=== PATIENT | male | born 1930 | race Caucasian/White ===

== ENCOUNTER 2017-11-24 13:11 | Day surgery (SDC) | payer MEDICARE, OTHER ==
[2017-11-24] MEDS ORDERED: FURO20 PO (14:46)
[2017-11-24] MEDS ORDERED: LOSARTAN POTAS100 MG PO (14:47)
[2017-11-24] MEDS ORDERED: POTA10T PO (14:47)
[2017-11-24] MEDS ORDERED: Prilosec Otc20 MG PO (14:48)
[2017-11-24] MEDS ORDERED: ATEN25 PO (14:48)
[2017-11-24] MEDS ORDERED: BEVESPI AEROS10.7 GM INH (14:54)
== END 2017-11-24 18:52 | disposition home or self-care (01) ==
LOC: ATC 13:11
DX: D50.8 Other iron deficiency anemias (principal); J45.909 Unspecified asthma, uncomplicated; I10 Essential (primary) hypertension
CPT/HCPCS: 36415; 36430; 86850; 86900; 86901; 86923; 96374; J1940; J7030; P9016

== ENCOUNTER 2018-02-07 10:15 | Inpatient (IN) | payer MEDICARE, OTHER ==
[~2018-02-07] VITALS: Ht 175.3 cm; Wt 49.1 kg
[~2018-02-07 10:15] MED LIST: ATEN25 PO; BEVESPI AEROS10.7 GM INH; FURO20 PO; LOSARTAN POTAS100 MG PO; POTA10T PO; Prilosec Otc20 MG PO
[2018-02-07 10:45] LABS: BASOPHILS ABSOLUTE AUTO 0.02 K/mm3 (0.00-0.23); BASOPHILS PERCENT AUTO 0 % (0-2); EOSINOPHILS PERCENT AUTO 0 % (0-6); Hematocrit 19.2 % (37.0-53.0); IMMATURE GRAN ABSOLUTE AUTO 0.03 K/mm3 (0.00-0.10); IMMATURE GRAN PERCENT AUTO 0 % (0-1); LYMPHOCYTES ABSOLUTE AUTO 2.07 K/mm3 (0.84-5.20); LYMPHOCYTES PERCENT AUTO 23 % (21-46); MONOCYTES ABSOLUTE AUTO 0.79 K/mm3 (0.16-1.47); MONOCYTES PERCENT AUTO 9 % (4-13); Mean Corpuscular HGB 29.1 pg (26.0-34.0); Mean Corpuscular HGB Conc 31.3 g/dL (31.5-36.5); Mean Corpuscular Volume 93 fL (80-100); Mean Platelet Volume 10.7 fL (9.1-12.4); NEUTROPHILS ABSOLUTE AUTO 6.18 K/mm3 (1.96-9.15); NEUTROPHILS PERCENT AUTO 68 % (41-73); Platelet Count 229 K/mm3 (150-400); RDW Coefficient Variation 17.6 % (11.7-14.2); RDW Standard Deviation 60.6 fL (35.1-46.3); Red Blood Cell Count 2.06 M/mm3 (4.30-5.90); White Blood Cell Count 9.09 K/mm3 (4.00-11.30)
[2018-02-07 11:07] LABS: Alanine Aminotransfer (ALT/SGP 14 U/L (12-78); Albumin, Blood 3.5 g/dL (3.4-5.0); Albumin/Globulin Ratio 1.1 (0.8-1.8); Alk Phos 41 U/L (50-136); Anion Gap 14 mmol/L (6-16); Aspartate Aminotrans (AST/SGOT 11 U/L (12-37); Bilirubin, Total 0.4 mg/dL (0.1-1.0); Blood Urea Nitrogen 50 mg/dL (8-24); Bun/Creatinine Ratio 33.1 (12.0-20.0); CO2, Blood 16 mmol/L (21-32); Calcium, Blood 9.2 mg/dL (8.5-10.1); Chloride, Blood 105 mmol/L (98-108); Creatinine, Blood 1.51 mg/dL (0.60-1.20); Globulin, Blood 3.2 g/dL (2.2-4.0); Glomerular Filtration Rate 47 (60-); Glucose, Blood 163 mg/dL (70-99); Potassium, Blood 4.8 mmol/L (3.5-5.5); Sodium, Blood 135 mmol/L (136-145); Total Protein, Blood 6.7 g/dL (6.4-8.2); Troponin I <0.015 ng/mL (0.000-0.040)
[2018-02-07] MEDS ORDERED: K-Dur10 MEQ (11:26)
[2018-02-07] MEDS ORDERED: LOSARTAN-HCTZ1 EAC2 PO (11:27)
[2018-02-07] MEDS ORDERED: FLUT1DIS2 (11:27)
[2018-02-07 13:42] LABS: Percent Saturation 4.8 % (20.0-50.0)
[2018-02-07 21:39] LABS: Hematocrit 26.2 % (37.0-53.0); Hemoglobin 8.8 g/dL (13.5-17.5)
[2018-02-08 04:07] LABS: BASOPHILS ABSOLUTE AUTO 0.02 K/mm3 (0.00-0.23); BASOPHILS PERCENT AUTO 0 % (0-2); EOSINOPHILS PERCENT AUTO 0 % (0-6); Hematocrit 27.4 % (37.0-53.0); IMMATURE GRAN ABSOLUTE AUTO 0.02 K/mm3 (0.00-0.10); IMMATURE GRAN PERCENT AUTO 0 % (0-1); LYMPHOCYTES ABSOLUTE AUTO 1.13 K/mm3 (0.84-5.20); LYMPHOCYTES PERCENT AUTO 16 % (21-46); MONOCYTES ABSOLUTE AUTO 0.69 K/mm3 (0.16-1.47); MONOCYTES PERCENT AUTO 10 % (4-13); Mean Corpuscular HGB 28.9 pg (26.0-34.0); Mean Corpuscular HGB Conc 32.8 g/dL (31.5-36.5); Mean Platelet Volume 10.5 fL (9.1-12.4); NEUTROPHILS ABSOLUTE AUTO 5.03 K/mm3 (1.96-9.15); NEUTROPHILS PERCENT AUTO 73 % (41-73); Platelet Count 168 K/mm3 (150-400); RDW Coefficient Variation 15.9 % (11.7-14.2); RDW Standard Deviation 51.9 fL (35.1-46.3); Red Blood Cell Count 3.11 M/mm3 (4.30-5.90); White Blood Cell Count 6.89 K/mm3 (4.00-11.30)
[2018-02-08 04:08] LABS: Mean Corpuscular Volume 88 fL (80-100)
[2018-02-08 04:29] LABS: Alanine Aminotransfer (ALT/SGP 19 U/L (12-78); Albumin, Blood 3.4 g/dL (3.4-5.0); Albumin/Globulin Ratio 1.1 (0.8-1.8); Alk Phos 34 U/L (50-136); Anion Gap 10 mmol/L (6-16); Aspartate Aminotrans (AST/SGOT 35 U/L (12-37); Bilirubin, Total 1.1 mg/dL (0.1-1.0); Blood Urea Nitrogen 51 mg/dL (8-24); Bun/Creatinine Ratio 42.5 (12.0-20.0); CO2, Blood 23 mmol/L (21-32); Calcium, Blood 8.8 mg/dL (8.5-10.1); Chloride, Blood 106 mmol/L (98-108); Glomerular Filtration Rate >60 (60-); Glucose, Blood 92 mg/dL (70-99); Sodium, Blood 139 mmol/L (136-145); Total Protein, Blood 6.4 g/dL (6.4-8.2)
[2018-02-09 04:12] LABS: BASOPHILS ABSOLUTE AUTO 0.03 K/mm3 (0.00-0.23); BASOPHILS PERCENT AUTO 0 % (0-2); EOSINOPHILS PERCENT AUTO 0 % (0-6); Hematocrit 30.7 % (37.0-53.0); Hemoglobin 10.1 g/dL (13.5-17.5); IMMATURE GRAN ABSOLUTE AUTO 0.03 K/mm3 (0.00-0.10); IMMATURE GRAN PERCENT AUTO 0 % (0-1); LYMPHOCYTES ABSOLUTE AUTO 0.78 K/mm3 (0.84-5.20); LYMPHOCYTES PERCENT AUTO 10 % (21-46); MONOCYTES ABSOLUTE AUTO 0.83 K/mm3 (0.16-1.47); MONOCYTES PERCENT AUTO 11 % (4-13); Mean Corpuscular HGB 29.4 pg (26.0-34.0); Mean Corpuscular HGB Conc 32.9 g/dL (31.5-36.5); Mean Corpuscular Volume 90 fL (80-100); Mean Platelet Volume 10.6 fL (9.1-12.4); NEUTROPHILS ABSOLUTE AUTO 5.98 K/mm3 (1.96-9.15); NEUTROPHILS PERCENT AUTO 78 % (41-73); Platelet Count 173 K/mm3 (150-400); RDW Coefficient Variation 16.1 % (11.7-14.2); RDW Standard Deviation 52.9 fL (35.1-46.3); Red Blood Cell Count 3.43 M/mm3 (4.30-5.90); White Blood Cell Count 7.65 K/mm3 (4.00-11.30)
[2018-02-09 04:32] LABS: Alanine Aminotransfer (ALT/SGP 21 U/L (12-78); Albumin, Blood 3.2 g/dL (3.4-5.0); Alk Phos 36 U/L (50-136); Anion Gap 9 mmol/L (6-16); Aspartate Aminotrans (AST/SGOT 30 U/L (12-37); Bilirubin, Total 0.6 mg/dL (0.1-1.0); Blood Urea Nitrogen 38 mg/dL (8-24); Bun/Creatinine Ratio 42.1 (12.0-20.0); CO2, Blood 24 mmol/L (21-32); Calcium, Blood 8.6 mg/dL (8.5-10.1); Chloride, Blood 107 mmol/L (98-108); Globulin, Blood 3.2 g/dL (2.2-4.0); Glomerular Filtration Rate >60 (60-); Glucose, Blood 87 mg/dL (70-99); Potassium, Blood 3.9 mmol/L (3.5-5.5); Sodium, Blood 140 mmol/L (136-145); Total Protein, Blood 6.4 g/dL (6.4-8.2)
[2018-02-09] MEDS ORDERED: DOCU100 PO (10:21)
[2018-02-09] MEDS ORDERED: Ferrous Sulfat325 MG PO (10:21)
[2018-02-09] MEDS ORDERED: LOSA50 PO (10:22)
== END 2018-02-09 13:02 | disposition home or self-care (01) | DRG 345 ==
LOC: ER 10:15 → PCU 12:39
PROVIDERS: Emergency Medicine; Internal Medicine; Internal Medicine Gastroenterology
PROC: 30233N1 Transfusion of Nonautologous Red Blood Cells into Peripheral Vein, Percutaneous Approach (ICD-10-PCS; 2018-02-07)
PROC: 0D5A8ZZ Destruction of Jejunum, Via Natural or Artificial Opening Endoscopic (ICD-10-PCS; principal; 2018-02-08 12:00)
DX: K92.1 Melena (principal); I13.0 Hypertensive heart and chronic kidney disease with heart failure and stage 1 through stage 4 chronic kidney disease, or unspecified chronic kidney disease; I50.22 Chronic systolic (congestive) heart failure; D62 Acute posthemorrhagic anemia; Z68.1 Body mass index [BMI] 19.9 or less, adult; D63.1 Anemia in chronic kidney disease; N18.9 Chronic kidney disease, unspecified; R62.7 Adult failure to thrive; R63.4 Abnormal weight loss; Q27.33 Arteriovenous malformation of digestive system vessel; K22.2 Esophageal obstruction; K29.40 Chronic atrophic gastritis without bleeding; Z79.899 Other long term (current) drug therapy; Z87.891 Personal history of nicotine dependence; Z96.641 Presence of right artificial hip joint; Z90.79 Acquired absence of other genital organ(s)
CPT/HCPCS: 36415; 36430; 71046; 80053; 82272; 82728; 83540; 83550; 83735; 83880; 84484; 85014; 85018; 85025; 86850; 86900; 86901; 86923; 93005; 93010; 93306; 96374; 99285; C9113; J1940; J7030; J7120; P9016

== ENCOUNTER 2018-05-20 12:27 | Observation (INO) | payer MEDICARE, OTHER ==
[~2018-05-20] VITALS: Ht 165.1 cm; Wt 52.1 kg
[~2018-05-20 12:27] MED LIST changes: +DOCU100 PO; +FLUT1DIS2; +Ferrous Sulfat325 MG PO; +K-Dur10 MEQ; +LOSA50 PO; +LOSARTAN-HCTZ1 EAC2 PO
[2018-05-20] MEDS ORDERED: CARV3.125 PO (12:34)
[2018-05-20] MEDS ORDERED: LOSARTAN POTAS100 MG PO (12:34)
[2018-05-20] MEDS ORDERED: K-Dur10 MEQ PO (12:34)
[2018-05-20 12:55] LABS: BASOPHILS ABSOLUTE AUTO 0.03 K/mm3 (0.00-0.23); BASOPHILS PERCENT AUTO 0 % (0-2); EOSINOPHILS PERCENT AUTO 0 % (0-6); Hematocrit 26.2 % (37.0-53.0); Hemoglobin 8.2 g/dL (13.5-17.5); IMMATURE GRAN ABSOLUTE AUTO 0.02 K/mm3 (0.00-0.10); IMMATURE GRAN PERCENT AUTO 0 % (0-1); LYMPHOCYTES ABSOLUTE AUTO 1.26 K/mm3 (0.84-5.20); LYMPHOCYTES PERCENT AUTO 13 % (21-46); MONOCYTES ABSOLUTE AUTO 0.94 K/mm3 (0.16-1.47); MONOCYTES PERCENT AUTO 10 % (4-13); Mean Corpuscular HGB 29.9 pg (26.0-34.0); Mean Corpuscular HGB Conc 31.3 g/dL (31.5-36.5); Mean Corpuscular Volume 96 fL (80-100); Mean Platelet Volume 10.3 fL (9.1-12.4); NEUTROPHILS PERCENT AUTO 77 % (41-73); Platelet Count 232 K/mm3 (150-400); RDW Coefficient Variation 16.6 % (11.7-14.2); RDW Standard Deviation 57.4 fL (35.1-46.3); Red Blood Cell Count 2.74 M/mm3 (4.30-5.90); White Blood Cell Count 9.75 K/mm3 (4.00-11.30)
[2018-05-20 13:07] LABS: Alanine Aminotransfer (ALT/SGP 15 U/L (12-78); Albumin, Blood 3.5 g/dL (3.4-5.0); Albumin/Globulin Ratio 0.9 (0.8-1.8); Alk Phos 53 U/L (50-136); Anion Gap 10 mmol/L (6-16); Aspartate Aminotrans (AST/SGOT 17 U/L (12-37); Bilirubin, Total 0.2 mg/dL (0.1-1.0); Blood Urea Nitrogen 45 mg/dL (8-24); Bun/Creatinine Ratio 30.4 (12.0-20.0); CO2, Blood 22 mmol/L (21-32); Calcium, Blood 8.7 mg/dL (8.5-10.1); Chloride, Blood 103 mmol/L (98-108); Creatinine, Blood 1.48 mg/dL (0.60-1.20); Glomerular Filtration Rate 48 (60-); Glucose, Blood 88 mg/dL (70-99); Potassium, Blood 4.8 mmol/L (3.5-5.5); Sodium, Blood 135 mmol/L (136-145); Total Protein, Blood 7.5 g/dL (6.4-8.2); Troponin I <0.015 ng/mL (0.000-0.040)
[2018-05-20 15:28] LABS: IMMATURE RETIC FRACTION 20.1 % (2.3-16.0); RETIC HGB EQUIVALENT 36.4 pg (28.20-36.60); RETICULOCYTE ABSOLUTE 0.0616 M/mm3 (0.0200-0.1100); RETICULOCYTE COUNT PERCENT 2.29 % (0.50-2.50)
[2018-05-20 20:25] LABS: Hematocrit 28.8 % (37.0-53.0); Hemoglobin 9.1 g/dL (13.5-17.5)
[2018-05-21 05:25] LABS: BASOPHILS ABSOLUTE AUTO 0.02 K/mm3 (0.00-0.23); BASOPHILS PERCENT AUTO 0 % (0-2); EOSINOPHILS PERCENT AUTO 0 % (0-6); Hematocrit 27.4 % (37.0-53.0); Hemoglobin 8.9 g/dL (13.5-17.5); IMMATURE GRAN ABSOLUTE AUTO 0.02 K/mm3 (0.00-0.10); IMMATURE GRAN PERCENT AUTO 0 % (0-1); LYMPHOCYTES ABSOLUTE AUTO 1.01 K/mm3 (0.84-5.20); LYMPHOCYTES PERCENT AUTO 12 % (21-46); MONOCYTES ABSOLUTE AUTO 0.99 K/mm3 (0.16-1.47); MONOCYTES PERCENT AUTO 12 % (4-13); Mean Corpuscular HGB 29.4 pg (26.0-34.0); Mean Corpuscular HGB Conc 32.5 g/dL (31.5-36.5); Mean Platelet Volume 10.3 fL (9.1-12.4); NEUTROPHILS ABSOLUTE AUTO 6.35 K/mm3 (1.96-9.15); NEUTROPHILS PERCENT AUTO 76 % (41-73); Platelet Count 197 K/mm3 (150-400); RDW Coefficient Variation 18.5 % (11.7-14.2); RDW Standard Deviation 60.9 fL (35.1-46.3); Red Blood Cell Count 3.03 M/mm3 (4.30-5.90); White Blood Cell Count 8.39 K/mm3 (4.00-11.30)
[2018-05-21 05:41] LABS: Anion Gap 9 mmol/L (6-16); Blood Urea Nitrogen 37 mg/dL (8-24); Bun/Creatinine Ratio 31.9 (12.0-20.0); CO2, Blood 23 mmol/L (21-32); Calcium, Blood 8.4 mg/dL (8.5-10.1); Chloride, Blood 106 mmol/L (98-108); Creatinine, Blood 1.16 mg/dL (0.60-1.20); Glomerular Filtration Rate >60 (60-); Glucose, Blood 82 mg/dL (70-99); Potassium, Blood 4.3 mmol/L (3.5-5.5); Sodium, Blood 138 mmol/L (136-145)
[2018-05-21 05:48] LABS: Mean Corpuscular Volume 90 fL (80-100)
[2018-05-21 12:42] LABS: Hematocrit 29.4 % (37.0-53.0); Hemoglobin 9.6 g/dL (13.5-17.5)
== END 2018-05-21 14:42 | disposition home or self-care (01) ==
LOC: ER 12:27 → MEDS 12:28 → ER 14:37 → MEDS 14:37 → ENPENDDIS 05-21 13:02 → MEDS 05-21 14:42
PROVIDERS: Emergency Medicine; Hospitalist; Internal Medicine Gastroenterology
PROC: 0W3P8ZZ Control Bleeding in Gastrointestinal Tract, Via Natural or Artificial Opening Endoscopic (ICD-10-PCS; principal; 2018-05-20 17:00)
DX: K31.819 Angiodysplasia of stomach and duodenum without bleeding (principal); D50.0 Iron deficiency anemia secondary to blood loss (chronic); I95.9 Hypotension, unspecified; I11.0 Hypertensive heart disease with heart failure; I50.20 Unspecified systolic (congestive) heart failure; J44.9 Chronic obstructive pulmonary disease, unspecified; Z79.899 Other long term (current) drug therapy; Z87.891 Personal history of nicotine dependence
CPT/HCPCS: 36415; 71046; 80048; 80053; 82272; 82607; 82728; 82746; 83540; 83550; 84484; 85014; 85018; 85025; 85045; 86850; 86900; 86901; 86923; 93005; 93010; 96360; 99285-25; G0378; J7040; J7120; P9016

== ENCOUNTER 2018-09-07 07:08 | Day surgery (SDC) | payer MEDICARE, OTHER ==
[~2018-09-07 07:08] MED LIST changes: +CARV3.125 PO; +K-Dur10 MEQ PO
--- NOTE | 2018-09-07 11:08 | NUR ---
LUNGS AFTER 1 UNIT PRBC, CLEAR, DECREASED L BASE
== END 2018-09-07 13:29 | disposition home or self-care (01) ==
LOC: ATC 07:08
DX: K92.2 Gastrointestinal hemorrhage, unspecified (principal); D64.9 Anemia, unspecified; B02.0 Zoster encephalitis; I50.20 Unspecified systolic (congestive) heart failure
CPT/HCPCS: 36430; 86850; 86900; 86901; 86923; J7050; P9016

== ENCOUNTER 2019-06-11 10:56 | Emergency (ER) | payer MEDICARE, OTHER ==
[~2019-06-11] VITALS: Ht 177.8 cm; Wt 65.8 kg
[2019-06-11] MEDS ORDERED: LOSARTAN POTASS25 M2 PO (11:21)
[2019-06-11] MEDS ORDERED: OLAN2.5 PO (11:21)
[2019-06-11] MEDS ORDERED: MIRT30 PO (11:21)
[2019-06-11] MEDS ORDERED: DONEPEZIL HCL5 M1 PO (11:22)
[2019-06-11 11:56] LABS: BASOPHILS ABSOLUTE AUTO 0.06 K/mm3 (0.00-0.23); BASOPHILS PERCENT AUTO 0 % (0-2); EOSINOPHILS PERCENT AUTO 0 % (0-6); Hematocrit 34.7 % (37.0-53.0); IMMATURE GRAN ABSOLUTE AUTO 0.04 K/mm3 (0.00-0.10); IMMATURE GRAN PERCENT AUTO 0 % (0-1); LYMPHOCYTES ABSOLUTE AUTO 1.06 K/mm3 (0.84-5.20); LYMPHOCYTES PERCENT AUTO 7 % (21-46); MONOCYTES ABSOLUTE AUTO 0.82 K/mm3 (0.16-1.47); MONOCYTES PERCENT AUTO 6 % (4-13); Mean Corpuscular HGB 33.1 pg (26.0-34.0); Mean Corpuscular HGB Conc 31.7 g/dL (31.5-36.5); Mean Corpuscular Volume 105 fL (80-100); Mean Platelet Volume 11.9 fL (9.1-12.4); NEUTROPHILS ABSOLUTE AUTO 12.79 K/mm3 (1.96-9.15); NEUTROPHILS PERCENT AUTO 87 % (41-73); Platelet Count 169 K/mm3 (150-400); RDW Coefficient Variation 16.3 % (11.7-14.2); Red Blood Cell Count 3.32 M/mm3 (4.30-5.90); White Blood Cell Count 14.77 K/mm3 (4.00-11.30)
[2019-06-11 12:06] LABS: Alanine Aminotransfer (ALT/SGP 15 U/L (12-78); Albumin, Blood 3.5 g/dL (3.4-5.0); Albumin/Globulin Ratio 0.9 (0.8-1.8); Alk Phos 42 U/L (50-136); Anion Gap 7 mmol/L (6-16); Aspartate Aminotrans (AST/SGOT 24 U/L (12-37); Bilirubin, Total 0.4 mg/dL (0.1-1.0); Blood Urea Nitrogen 48 mg/dL (8-24); CO2, Blood 21 mmol/L (21-32); Calcium, Blood 9.3 mg/dL (8.5-10.1); Chloride, Blood 112 mmol/L (98-108); Creatinine, Blood 1.41 mg/dL (0.60-1.20); Glomerular Filtration Rate 50 (60-); Glucose, Blood 101 mg/dL (70-99); Potassium, Blood 4.3 mmol/L (3.5-5.5); Sodium, Blood 140 mmol/L (136-145); Total Protein, Blood 7.5 g/dL (6.4-8.2); Troponin I <0.015 ng/mL (0.000-0.040)
== END 2019-06-11 13:32 | disposition home or self-care (01) ==
LOC: ER 10:56
PROVIDERS: Emergency Medicine
DX: R10.30 Lower abdominal pain, unspecified (principal); R00.1 Bradycardia, unspecified; Z87.891 Personal history of nicotine dependence; Z79.899 Other long term (current) drug therapy
CPT/HCPCS: 80053; 82272; 83690; 84484; 85025; 93005; 93010; 99284-25

== ENCOUNTER 2019-07-28 11:43 | Inpatient (IN) | payer MEDICARE, OTHER ==
[~2019-07-28] VITALS: Ht 170.2 cm; Wt 47.0 kg
[~2019-07-28 11:43] MED LIST changes: +DONEPEZIL HCL5 M1 PO; +LOSARTAN POTASS25 M2 PO; +OLAN2.5 PO; -Prilosec Otc20 MG PO
[2019-07-28 12:13] LABS: BASOPHILS ABSOLUTE AUTO 0.05 K/mm3 (0.00-0.23); BASOPHILS PERCENT AUTO 0 % (0-2); EOSINOPHILS PERCENT AUTO 0 % (0-6); Hematocrit 33.8 % (37.0-53.0); IMMATURE GRAN ABSOLUTE AUTO 0.13 K/mm3 (0.00-0.10); IMMATURE GRAN PERCENT AUTO 1 % (0-1); LYMPHOCYTES PERCENT AUTO 8 % (21-46); MONOCYTES ABSOLUTE AUTO 1.55 K/mm3 (0.16-1.47); MONOCYTES PERCENT AUTO 7 % (4-13); Mean Corpuscular HGB 32.5 pg (26.0-34.0); Mean Corpuscular HGB Conc 32.5 g/dL (31.5-36.5); Mean Corpuscular Volume 100 fL (80-100); Mean Platelet Volume 11.4 fL (9.1-12.4); NEUTROPHILS ABSOLUTE AUTO 17.87 K/mm3 (1.96-9.15); NEUTROPHILS PERCENT AUTO 84 % (41-73); Platelet Count 225 K/mm3 (150-400); RDW Coefficient Variation 14.6 % (11.7-14.2); RDW Standard Deviation 53.2 fL (35.1-46.3); Red Blood Cell Count 3.38 M/mm3 (4.30-5.90)
[2019-07-28 12:32] LABS: Albumin, Blood 3.3 g/dL (3.4-5.0); Albumin/Globulin Ratio 0.7 (0.8-1.8); Bilirubin, Total 0.5 mg/dL (0.1-1.0); Bun/Creatinine Ratio 33.6 (12.0-20.0); Calcium, Blood 9.3 mg/dL (8.5-10.1); Creatinine, Blood 1.4 mg/dL (0.60-1.20); Globulin, Blood 4.5 g/dL (2.2-4.0); Potassium, Blood 3.9 mmol/L (3.5-5.5); Total Protein, Blood 7.8 g/dL (6.4-8.2)
[2019-07-28 14:00] LABS: Source, Urine Clean Catch
[2019-07-28 14:12] LABS: Bilirubin, Urine Neg (Neg); Blood, Urine Neg (Neg); Glucose Qualitative, Urine Neg (Neg); Ketones, Urine 1+ (Neg); Leukocyte Esterase, Urine 1+ (Neg); Nitrite, Urine Neg (Neg); Protein, Urine Neg (Neg); Urobilinogen, Urine NORM (Normal)
[2019-07-28 14:52] LABS: Appearance, Urine Clear (Clear); Color, Urine Yellow (P-Yellow)
[2019-07-28 14:54] LABS: Bacteria Few /hpf; Mucus Light (0-Heavy); Red Blood Cells, Urine Not Seen /hpf (0-2); Squamous Epithelial Cells Not Seen /hpf (Few); White Blood Cells, Urine 0-2 /hpf (0-5)
[2019-07-29 00:10] LABS: Adenovirus Not Detected (NOT DETECT); Bordetella pertussis Not Detected (NOT DETECT); Chlamydophila pneumoniae Not Detected (NOT DETECT); Coronavirus 229E Not Detected (NOT DETECT); Coronavirus HKU1 Not Detected (NOT DETECT); Coronavirus NL63 Not Detected (NOT DETECT); Coronavirus OC43 Not Detected (NOT DETECT); Human Metapneumovirus Not Detected (NOT DETECT); Human Rhinovirus/Enterovirus Not Detected (NOT DETECT); Influenza A Not Detected (NOT DETECT); Influenza A/2009-H1 Not Detected (NOT DETECT); Influenza A/H1 Not Detected (NOT DETECT); Influenza A/H3 Not Detected (NOT DETECT); Influenza B Not Detected (NOT DETECT); Mycoplasma pneumoniae Not Detected (NOT DETECT); Parainfluenza Virus 1 Not Detected (NOT DETECT); Parainfluenza Virus 2 Not Detected (NOT DETECT); Parainfluenza Virus 3 Not Detected (NOT DETECT); Parainfluenza Virus 4 Not Detected (NOT DETECT); Respiratory Syncytial Virus Not Detected (NOT DETECT)
[2019-07-29 04:56] LABS: BASOPHILS ABSOLUTE AUTO 0.06 K/mm3 (0.00-0.23); BASOPHILS PERCENT AUTO 0 % (0-2); EOSINOPHILS PERCENT AUTO 0 % (0-6); Hematocrit 35.8 % (37.0-53.0); Hemoglobin 11.7 g/dL (13.5-17.5); IMMATURE GRAN ABSOLUTE AUTO 0.13 K/mm3 (0.00-0.10); IMMATURE GRAN PERCENT AUTO 1 % (0-1); LYMPHOCYTES PERCENT AUTO 15 % (21-46); MONOCYTES PERCENT AUTO 7 % (4-13); Mean Corpuscular HGB 33.3 pg (26.0-34.0); Mean Corpuscular HGB Conc 32.7 g/dL (31.5-36.5); Mean Corpuscular Volume 102 fL (80-100); Mean Platelet Volume 11.2 fL (9.1-12.4); NEUTROPHILS ABSOLUTE AUTO 15.93 K/mm3 (1.96-9.15); NEUTROPHILS PERCENT AUTO 77 % (41-73); Platelet Count 257 K/mm3 (150-400); RDW Coefficient Variation 14.6 % (11.7-14.2); RDW Standard Deviation 54.8 fL (35.1-46.3); Red Blood Cell Count 3.51 M/mm3 (4.30-5.90); White Blood Cell Count 20.72 K/mm3 (4.00-11.30)
--- NOTE | 2019-07-29 05:00 | NUR ---
LYING IN SEMI FOWLERS WITH EYES OPEN WHILE SIPPING ON BLACK COFFEE AND WATCHING [employer] NEWS. WAS FOUND ROAMING IN ROOM WITH ONLY A PULL UP ON. GOWN WAS NOTED IN BATHROOM FLOOR ALONG WITH BEDDING EXCEPT BOTTOM SHEET THAT WAS STILL ON THE BED WITH A BLOOD SPOT. THERE WERE NUMEROUS BLOOD DROPS NOTED ON THE FLOOR, WALL, AND SURFACES IN ROOM. ROOM CLEANED BY STAFF AND HOUSE KEEPING. 20G PIV FOUND WRAPPED AROUND THE BEDSIDE TABLE WITH CATH TIP INTACT. BLOOD DRIPS AND SMEARS NOTED TO PT'S HANDS, ARMS, AND LEGS. PARTIAL BATH FOR EXTREMITIES AND [place]ISA AREA COMPLTED AND LINENS CHANGES INCLUDING SHOWER CURTIAN AND DOOR CURTIAN. NEW 18G PIV PLACED TO RIGHT FA, GOOD BLOOD RETURN NOTED. MORNING LABS DRAWN FROM NEW SITE AND IVF RESTARTED, TOLERATED WELL. DENIES PAIN, DISCOMFORT, OR FURTHER NEEDS AT THIS TIME. SAFETY MEASURES IN PLACE INCLUDING BED ALARM. WILL GIVE HAND OFF TO NCOMING SHIFT USING SBAR.
[2019-07-29 05:17] LABS: Albumin, Blood 3.5 g/dL (3.4-5.0); Albumin/Globulin Ratio 0.7 (0.8-1.8); Bilirubin, Total 0.5 mg/dL (0.1-1.0); Bun/Creatinine Ratio 33.3 (12.0-20.0); Calcium, Blood 9.6 mg/dL (8.5-10.1); Creatinine, Blood 1.23 mg/dL (0.60-1.20); Globulin, Blood 4.9 g/dL (2.2-4.0); Potassium, Blood 3.6 mmol/L (3.5-5.5); Total Protein, Blood 8.4 g/dL (6.4-8.2)
--- NOTE | 2019-07-29 11:00 | NUR ---
DR. HEARN IN TO SEE PT DR. BETHEA IN TO SEE PT AT THIS TIME. SEE EMAR FOR NEW ORDERS.
--- NOTE | 2019-07-29 18:52 | NUR ---
SHIFT SUMMARY PT A&O TO PERSON, PLACE AND FAMILY. PLEASANTLY CONFUSED AT TIMES. DENIES SOB OR DYSPNEA. SPO2 ON 2L NC AT 95%. ABX AND IVF ADMINISTERED PER ORDER. ABLE TO USE URINAL AT BEDSIDE. RESTED IN BED MOST OF SHIFT, AGREED TO SIT UP IN CHAIR THIS EVENING. FAMILY AT BEDSIDE THIS AFTERNOON, STATES THIS IS HIS BASELINE. DENIED PAIN OR DYSCOMFORT T/O SHIFT. HAS CALL LIGHT WITHIN REACH. WILL CONTINUE TO MONITOR AND GIVE REPORT TO ONCOMING RN.
[2019-07-30 04:26] LABS: BASOPHILS ABSOLUTE AUTO 0.02 K/mm3 (0.00-0.23); BASOPHILS PERCENT AUTO 0 % (0-2); EOSINOPHILS PERCENT AUTO 0 % (0-6); Hematocrit 30.1 % (37.0-53.0); Hemoglobin 9.7 g/dL (13.5-17.5); IMMATURE GRAN ABSOLUTE AUTO 0.07 K/mm3 (0.00-0.10); IMMATURE GRAN PERCENT AUTO 0 % (0-1); LYMPHOCYTES ABSOLUTE AUTO 1.15 K/mm3 (0.84-5.20); LYMPHOCYTES PERCENT AUTO 7 % (21-46); MONOCYTES ABSOLUTE AUTO 1.26 K/mm3 (0.16-1.47); MONOCYTES PERCENT AUTO 8 % (4-13); Mean Corpuscular HGB 32.6 pg (26.0-34.0); Mean Corpuscular HGB Conc 32.2 g/dL (31.5-36.5); Mean Corpuscular Volume 101 fL (80-100); Mean Platelet Volume 11.2 fL (9.1-12.4); NEUTROPHILS PERCENT AUTO 85 % (41-73); Platelet Count 210 K/mm3 (150-400); RDW Coefficient Variation 14.6 % (11.7-14.2); RDW Standard Deviation 54.7 fL (35.1-46.3); Red Blood Cell Count 2.98 M/mm3 (4.30-5.90)
[2019-07-30 04:46] LABS: Bun/Creatinine Ratio 31.7 (12.0-20.0); Calcium, Blood 8.9 mg/dL (8.5-10.1); Creatinine, Blood 1.23 mg/dL (0.60-1.20); Potassium, Blood 3.7 mmol/L (3.5-5.5)
--- NOTE | 2019-07-30 06:04 | NUR ---
SUMMARY NO ACUTE CHANGES NOTED. PT REMAINS ON 2L O2 VIA NC, DENIES SOB, RESPIRATIONS UNLABORED. NS INFUSING PER EMAR @75 ML/HR. VOIDING WNL. TOLERATING PO INTAKE. BED ALARM ON FOR SAFETY. CALL LIGHT IN REACH.
--- NOTE | 2019-07-30 17:24 | NUR ---
SHIFT SUMMARY PT UP IN CHAIR FOR LUNCH AND STAYED UP TIL APPROX 1600. REPORTED FEELING BETTER THIS AFTERNOON THAN THIS MORNING. O2 DROPPED TO 2L/M THIS AFTERNOON. 1 PERSON ASSIST USING A FWW. HAS CONTINUED WITH A LOOSE PRODUCTIVE COUGH THAT AT TIMES REQUIRES ENCOURAGEMENT TO COUGH SPUTUM UP. FORGETFUL AND DOESN'T USE CALL BUTTON. BED AND TAB ALARM ON.
--- NOTE | 2019-07-31 04:51 | NUR ---
SHIFT SUMMARY NO CHANGES NOTED THROUGH THE NIGHT. PT REMAINS ON 2 L O2 VIA NC, DENIES SOB, RESP UNLABORED. STAND BY ASSIST TO THE BATHROOM. BED ALARM FOR SAFETY. CALL LIGHT IN REACH
[2019-07-31 05:26] LABS: BASOPHILS ABSOLUTE AUTO 0.01 K/mm3 (0.00-0.23); BASOPHILS PERCENT AUTO 0 % (0-2); EOSINOPHILS PERCENT AUTO 0 % (0-6); Hematocrit 30.7 % (37.0-53.0); Hemoglobin 9.7 g/dL (13.5-17.5); IMMATURE GRAN ABSOLUTE AUTO 0.08 K/mm3 (0.00-0.10); IMMATURE GRAN PERCENT AUTO 1 % (0-1); LYMPHOCYTES ABSOLUTE AUTO 1.46 K/mm3 (0.84-5.20); LYMPHOCYTES PERCENT AUTO 9 % (21-46); MONOCYTES ABSOLUTE AUTO 1.19 K/mm3 (0.16-1.47); MONOCYTES PERCENT AUTO 8 % (4-13); Mean Corpuscular HGB 31.9 pg (26.0-34.0); Mean Corpuscular HGB Conc 31.6 g/dL (31.5-36.5); Mean Corpuscular Volume 101 fL (80-100); Mean Platelet Volume 11.9 fL (9.1-12.4); NEUTROPHILS ABSOLUTE AUTO 12.87 K/mm3 (1.96-9.15); NEUTROPHILS PERCENT AUTO 82 % (41-73); Platelet Count 225 K/mm3 (150-400); RDW Coefficient Variation 14.4 % (11.7-14.2); Red Blood Cell Count 3.04 M/mm3 (4.30-5.90); White Blood Cell Count 15.61 K/mm3 (4.00-11.30)
[2019-07-31 05:38] LABS: Anion Gap 9 mmol/L (6-16); Blood Urea Nitrogen 34 mg/dL (8-24); Bun/Creatinine Ratio 28.6 (12.0-20.0); CO2, Blood 25 mmol/L (21-32); Calcium, Blood 8.9 mg/dL (8.5-10.1); Chloride, Blood 107 mmol/L (98-108); Creatinine, Blood 1.19 mg/dL (0.60-1.20); Glomerular Filtration Rate >60 (60-); Glucose, Blood 99 mg/dL (70-99); Potassium, Blood 3.4 mmol/L (3.5-5.5); Sodium, Blood 141 mmol/L (136-145)
--- NOTE | 2019-07-31 07:15 | NUR ---
PT AWAKE HAS HIS OXYGEN OFF BIOX RA 88% PUT OXYGEN BACK ON PT HAS OCC COUGH PT STATED HE WOULD LIKE TO GET UP FOR BREAKFAST
--- NOTE | 2019-07-31 10:07 | NUR ---
ISTRATE BY TO SEE PT PT/OT ORDERED POSS DISCHARGE ELISEUR
--- NOTE | 2019-07-31 11:48 | NUR ---
physical therapy worked with pt yousif in [facility]
--- NOTE | 2019-07-31 14:00 | NUR ---
dr veratrate by to see pt put his table closer also earlier gave him a cane vs a walker ok per therapy
--- NOTE | 2019-07-31 18:00 | NUR ---
helped pt up to bathroom
--- NOTE | 2019-07-31 18:51 | NUR ---
pt visiting with family update given
[2019-08-01 05:03] LABS: BASOPHILS ABSOLUTE AUTO 0.01 K/mm3 (0.00-0.23); BASOPHILS PERCENT AUTO 0 % (0-2); EOSINOPHILS PERCENT AUTO 0 % (0-6); Hemoglobin 10.2 g/dL (13.5-17.5); IMMATURE GRAN ABSOLUTE AUTO 0.07 K/mm3 (0.00-0.10); IMMATURE GRAN PERCENT AUTO 1 % (0-1); LYMPHOCYTES ABSOLUTE AUTO 1.36 K/mm3 (0.84-5.20); LYMPHOCYTES PERCENT AUTO 11 % (21-46); MONOCYTES ABSOLUTE AUTO 1.05 K/mm3 (0.16-1.47); MONOCYTES PERCENT AUTO 8 % (4-13); Mean Corpuscular HGB 32.4 pg (26.0-34.0); Mean Corpuscular HGB Conc 32.9 g/dL (31.5-36.5); Mean Platelet Volume 11.4 fL (9.1-12.4); NEUTROPHILS ABSOLUTE AUTO 10.34 K/mm3 (1.96-9.15); NEUTROPHILS PERCENT AUTO 81 % (41-73); Platelet Count 212 K/mm3 (150-400); RDW Coefficient Variation 14.6 % (11.7-14.2); RDW Standard Deviation 51.8 fL (35.1-46.3); Red Blood Cell Count 3.15 M/mm3 (4.30-5.90); White Blood Cell Count 12.83 K/mm3 (4.00-11.30)
[2019-08-01 05:04] LABS: Mean Corpuscular Volume 98 fL (80-100)
[2019-08-01 05:39] LABS: Bun/Creatinine Ratio 29.5 (12.0-20.0); Creatinine, Blood 1.39 mg/dL (0.60-1.20); Potassium, Blood 3.3 mmol/L (3.5-5.5)
--- NOTE | 2019-08-01 06:27 | NUR ---
SHIFT SUMMARY LYING IN SEMI FOWLERS WITH EYES OPEN WHILE WATCHING TV. HAS RESTED WELL THIS SHIFT. STATES THAT HE IS LOOKING FORWARD TO GOING HOME TODAY. DENIES PAIN, DIOSCOMFORT, OR FURTHER NEEDS AT THIS TIME. SAFETY MEASURES IN PLACE. WILL GIVE HAND OFF TO ONCOMING SHIFT USING SBAR.
--- NOTE | 2019-08-01 08:21 | NUR ---
DR YEBOAHTRATE IN TO SEE PT.
[2019-08-01] MEDS ORDERED: AZIT500 PO (10:01)
[2019-08-01] MEDS ORDERED: BISA5EC PO (10:02)
[2019-08-01] MEDS ORDERED: CEFP200 PO (10:03)
[2019-08-01] MEDS ORDERED: ONDA4ODT PO (10:06)
[2019-08-01] MEDS ORDERED: Florastor250 MG PO (10:08)
--- NOTE | 2019-08-01 13:19 | NUR ---
DISCHARGED DC'D IV, CATHETER INTACT. REVIEWED DC PAPERWORK W/PT'S NIECE; VERBALIZED UNDERSTANDING. PT LEFT UNIT IN WC W/POSSESSIONS AND DC PAPERWORK, ACCOMPANIED BY NIECE.
== END 2019-08-01 13:07 | disposition home health service (06) | DRG 193 ==
LOC: ER 11:43 → ERHOLD 15:15 → SURS 17:56
PROVIDERS: Emergency Medicine; ADMIT Family Medicine
DX: J18.9 Pneumonia, unspecified organism (principal); J96.21 Acute and chronic respiratory failure with hypoxia; N17.9 Acute kidney failure, unspecified; J44.0 Chronic obstructive pulmonary disease with (acute) lower respiratory infection; I50.22 Chronic systolic (congestive) heart failure; I13.0 Hypertensive heart and chronic kidney disease with heart failure and stage 1 through stage 4 chronic kidney disease, or unspecified chronic kidney disease; I42.9 Cardiomyopathy, unspecified; N18.3 Chronic kidney disease, stage 3 (moderate); K21.9 Gastro-esophageal reflux disease without esophagitis; E87.6 Hypokalemia; Z66 Do not resuscitate; N40.0 Benign prostatic hyperplasia without lower urinary tract symptoms; G47.00 Insomnia, unspecified; Z87.891 Personal history of nicotine dependence
CPT/HCPCS: 0099U; 36415; 71045; 71046; 80048; 80053; 81001; 83605; 84145; 85025; 87040; 87070; 87086; 87205; 94640; 94664; 94760; 94761; 96365; 96367; 97162; 97165; 97530; 97535; 98960; 99285-25; J0456; J0696; J1650; J7030; J7050; J7512

== ENCOUNTER 2019-08-11 10:07 | Observation (INO) | payer MEDICARE, OTHER ==
[~2019-08-11] VITALS: Ht 162.6 cm; Wt 47.7 kg
[~2019-08-11 10:07] MED LIST changes: +AZIT500 PO; +BISA5EC PO; +CEFP200 PO; +Florastor250 MG PO; +ONDA4ODT PO
[2019-08-11 10:38] LABS: BASOPHILS ABSOLUTE AUTO 0.05 K/mm3 (0.00-0.23); BASOPHILS PERCENT AUTO 0 % (0-2); EOSINOPHILS PERCENT AUTO 0 % (0-6); Hematocrit 30.4 % (37.0-53.0); Hemoglobin 9.5 g/dL (13.5-17.5); IMMATURE GRAN ABSOLUTE AUTO 0.23 K/mm3 (0.00-0.10); IMMATURE GRAN PERCENT AUTO 1 % (0-1); LYMPHOCYTES ABSOLUTE AUTO 1.28 K/mm3 (0.84-5.20); LYMPHOCYTES PERCENT AUTO 6 % (21-46); MONOCYTES ABSOLUTE AUTO 0.98 K/mm3 (0.16-1.47); MONOCYTES PERCENT AUTO 5 % (4-13); Mean Corpuscular HGB 33.5 pg (26.0-34.0); Mean Corpuscular HGB Conc 31.3 g/dL (31.5-36.5); Mean Corpuscular Volume 107 fL (80-100); Mean Platelet Volume 11.4 fL (9.1-12.4); NEUTROPHILS ABSOLUTE AUTO 17.61 K/mm3 (1.96-9.15); NEUTROPHILS PERCENT AUTO 87 % (41-73); Platelet Count 189 K/mm3 (150-400); RDW Coefficient Variation 15.1 % (11.7-14.2); RDW Standard Deviation 59.3 fL (35.1-46.3); Red Blood Cell Count 2.84 M/mm3 (4.30-5.90); White Blood Cell Count 20.15 K/mm3 (4.00-11.30)
[2019-08-11 10:56] LABS: Albumin, Blood 2.8 g/dL (3.4-5.0); Albumin/Globulin Ratio 0.8 (0.8-1.8); Bilirubin, Total 0.2 mg/dL (0.1-1.0); Bun/Creatinine Ratio 24.6 (12.0-20.0); Calcium, Blood 8.3 mg/dL (8.5-10.1); Creatine Kinase MB 4.7 ng/mL (0.0-3.6); Creatine Kinase MB Index 5.2 (0.0-4.0); Creatinine, Blood 1.75 mg/dL (0.60-1.20); Globulin, Blood 3.7 g/dL (2.2-4.0); Potassium, Blood 4.4 mmol/L (3.5-5.5); Total Protein, Blood 6.5 g/dL (6.4-8.2)
[2019-08-11] MEDS ORDERED: ALBU90OI INH (12:56)
[2019-08-11] MEDS ORDERED: MIRT30ST PO (12:56)
[2019-08-11] MEDS ORDERED: POTA10T PO (12:57)
[2019-08-11] MEDS ORDERED: TORS10 PO (12:58)
[2019-08-11] MEDS ORDERED: OLANZAPINE2.5 MG PO (12:58)
[2019-08-11] MEDS ORDERED: DONEPEZIL HCL10 M1 PO (12:59)
[2019-08-11] MEDS ORDERED: METOPROLOL SUCC25 MG PO (12:59)
[2019-08-11] MEDS ORDERED: Vitamin D2000 UNIT PO (13:14)
[2019-08-11] MEDS ORDERED: ACET500 PO (13:14)
[2019-08-11] MEDS ORDERED: Prilosec Otc20 MG PO (13:14)
[2019-08-11] MEDS ORDERED: DEXT30SU PO (13:15)
[2019-08-11] MEDS ORDERED: FER-IN-SOL15 MG/1 ML PO (13:15)
[2019-08-11] MEDS ORDERED: GUAI600T33 PO (13:16)
[2019-08-11] MEDS ORDERED: MELATONIN10 M2 PO (13:16)
[2019-08-11 16:18] LABS: Hematocrit 29.2 % (37.0-53.0); Hemoglobin 9.4 g/dL (13.5-17.5)
[2019-08-11 16:36] LABS: Source, Urine Clean Catch
[2019-08-11 16:39] LABS: Creatine Kinase MB 15.3 ng/mL (0.0-3.6); Creatine Kinase MB Index 4.2 (0.0-4.0)
[2019-08-11 16:39] LABS: Bilirubin, Urine Neg (Neg); Blood, Urine Neg (Neg); Glucose Qualitative, Urine Neg (Neg); Ketones, Urine Neg (Neg); Leukocyte Esterase, Urine Neg (Neg); Nitrite, Urine Neg (Neg); Protein, Urine 1+ (Neg); Urobilinogen, Urine NORM (Normal)
[2019-08-11 16:48] LABS: Appearance, Urine Clear (Clear); Color, Urine Yellow (P-Yellow)
--- NOTE | 2019-08-11 17:51 | NUR ---
PATIENT ADMITTED FROM ER AFTER BEING FOUND DOWN OVER NIGHT OUTSIDE. HE HAS ADVANCED DEMENTIA BUT IS EASILY REDIRECTABLE AND IS ALERT . FAMILY IS PRESENT AND ACTIVE IN HIS CARE. PATIENT AMBULATED AT HOME WITH FWW OR CANE AND IS A FALLS RISK . HE IS COVERED WITH BRUISES BUT NO SKIN TEARS FROM FALLS. HE REPORTS NO PAIN,SOB, OR NV, JUST COLD. PATIENT HAS BEEN COVERED WITH BLANKETS AND HEAT TURNED UP. CALL LIGHT WITHIN REACH. PALLATIVE CARE CONSULTED.
[2019-08-11 22:41] LABS: Hematocrit 24.9 % (37.0-53.0)
[2019-08-11 22:54] LABS: Creatine Kinase MB 15.7 ng/mL (0.0-3.6); Creatine Kinase MB Index 3.1 (0.0-4.0)
[2019-08-12 03:21] LABS: BASOPHILS ABSOLUTE AUTO 0.03 K/mm3 (0.00-0.23); BASOPHILS PERCENT AUTO 0 % (0-2); EOSINOPHILS PERCENT AUTO 0 % (0-6); Hematocrit 25.4 % (37.0-53.0); Hematocrit 26.3 % (37.0-53.0); Hemoglobin 8.2 g/dL (13.5-17.5); IMMATURE GRAN ABSOLUTE AUTO 0.03 K/mm3 (0.00-0.10); IMMATURE GRAN PERCENT AUTO 0 % (0-1); LYMPHOCYTES ABSOLUTE AUTO 1.28 K/mm3 (0.84-5.20); LYMPHOCYTES PERCENT AUTO 11 % (21-46); MONOCYTES ABSOLUTE AUTO 0.73 K/mm3 (0.16-1.47); MONOCYTES ABSOLUTE AUTO 0.78 K/mm3 (0.16-1.47); MONOCYTES PERCENT AUTO 6 % (4-13); MONOCYTES PERCENT AUTO 7 % (4-13); Mean Corpuscular HGB 32.3 pg (26.0-34.0); Mean Corpuscular HGB 33.2 pg (26.0-34.0); Mean Corpuscular HGB Conc 31.2 g/dL (31.5-36.5); Mean Corpuscular HGB Conc 32.3 g/dL (31.5-36.5); Mean Platelet Volume 11.3 fL (9.1-12.4); Mean Platelet Volume 11.5 fL (9.1-12.4); NEUTROPHILS ABSOLUTE AUTO 9.38 K/mm3 (1.96-9.15); NEUTROPHILS ABSOLUTE AUTO 9.64 K/mm3 (1.96-9.15); NEUTROPHILS PERCENT AUTO 82 % (41-73); Platelet Count 136 K/mm3 (150-400); Platelet Count 142 K/mm3 (150-400); RDW Coefficient Variation 15.1 % (11.7-14.2); RDW Coefficient Variation 15.4 % (11.7-14.2); RDW Standard Deviation 56.9 fL (35.1-46.3); Red Blood Cell Count 2.47 M/mm3 (4.30-5.90); Red Blood Cell Count 2.54 M/mm3 (4.30-5.90); White Blood Cell Count 11.71 K/mm3 (4.00-11.30)
[2019-08-12 03:22] LABS: Mean Corpuscular Volume 103 fL (80-100); Mean Corpuscular Volume 104 fL (80-100)
[2019-08-12 03:34] LABS: Bun/Creatinine Ratio 28.1 (12.0-20.0); Calcium, Blood 7.8 mg/dL (8.5-10.1); Creatinine, Blood 1.35 mg/dL (0.60-1.20); Phosphorus, Blood 2.5 mg/dL (2.5-4.9); Potassium, Blood 3.8 mmol/L (3.5-5.5)
--- NOTE | 2019-08-12 04:02 | NUR ---
SHIFT SUMMARY. PT HAD A NOTED DROP IN H/H AND DR. NOYOLA CALLED. PROVIDER ORDERED A 500 ML BOLUS AT 200ML/ HR. REPEAT LAB SHOWED INCREASE IN H/H. PT HAS BEEN SLEEPING WELL W/ OUT COMPLAINT. PT DID HAVE A BM THAT WAS FORMED, BLACK AND TARRY. PT CURRENTLY SLEEPING AND BREATHING EASY. CALL LIGHT IN REACH.
--- NOTE | 2019-08-12 07:34 | NUR ---
vs PTS BP TAKEN THIS AM ON THE LEFT ARM LYING FLAT WAS 85/50 HR 70, PT DENIED ANY DIZZINESS, CALLED DR. ROWLEY TO NOTIFY HER OF THE PTS VS
[2019-08-12 08:37] LABS: Hematocrit 28.3 % (37.0-53.0); Hemoglobin 8.7 g/dL (13.5-17.5)
[2019-08-12 13:06] LABS: Hematocrit 30.5 % (37.0-53.0); Hemoglobin 9.5 g/dL (13.5-17.5)
--- NOTE | 2019-08-12 14:17 | NUR ---
Met with patient and nephew. pt up in chair alert able to answer most questions. states he is feeling better today. he has pain to both his shoulders. no chest pain no headaches, nausea, or shortness of breath. He states not much appetite. Family confirms he has not been wanting to eat. Teri goldsmith pt with HH liason. Pt may benefit from more time in hospital after hyothermic event. pt high fall risk and high risk to return to hospital. Suggest home with hospice or home health with rehab and transition to hospice if further decline. Will ask niece to review a POLST
--- NOTE | 2019-08-12 15:48 | NUR ---
PT IS A/OX3, PLEASANT AND COOPERATIVE, FORGETFULL AT TIMES, HOWEVER, EASILY REDIRECTED, THE PT WAS UP MWITH THE PHYSICAL AND OCCUPATIONAL THERAPIST TODAY AND WALKED IN THE [place] USEING THE FWW, THIS AFTERNOON THIS RN TOOK THE PT FOR A WALK DOWN THE [place] USEING THE CANE THE PT WAS SOMEWHAT OFF BALANCE AT TIMES WITH THE CANE, RECOMEND THAT HE USES THE FWW, HOME HEALTH HOSPICE AND PALLATATIVE CARE SPOKE WITH THE PT AND HIS FAMILY TODAY, PLAN IS TO DC HOME TOMARROW AROUND 10:30 AM, PT APPEARS TO BE BREATHING EASILY AT REST, CALL LIGHT IN REACH, WILL CONTINUE TO MONITOR AND ASSESS FOR CHANGES
--- NOTE | 2019-08-12 16:23 | NUR ---
PTS VS PTS AFTERNOON BP WAS 85/58, HR 78 BPM, THE PT DENIES ANY DIZZINESS/ LIGHTHEADED, CALLED DR. ROWLEY TO NOTIFY OF CURRENT BLOOD PRESSURE ORDER TO CONTINUE IV FLUIDS AT CURRENT RATE AND CONTINUE TO MONITOR VS FOR FURTHER DROP IN BP
[2019-08-12 20:12] LABS: Hematocrit 25.2 % (37.0-53.0)
[2019-08-13 02:15] LABS: Hematocrit 24.2 % (37.0-53.0); Hemoglobin 7.7 g/dL (13.5-17.5)
--- NOTE | 2019-08-13 03:26 | NUR ---
WAS ALERTED TO TRENDING DOWN H&H, WAS 8.0/25.2 AT START OF SHIFT AND NOW IS 7.7/24.2. MD AWARE THAT X4 SET OF DRAWS IS NOW COMPLETE. NO NEW ORDERS RECIEVED AND MD INSTRUCTED TO HAVE DAY HOSPITALIST REEVALUATE.
--- NOTE | 2019-08-13 05:34 | NUR ---
SUMMARY: PT A/OX2-3 AND IS FORGETFULL AT TIMES TO PLACE/EVENT, REMINDERS GIVEN PRN. BED ALARM IS ON FOR FALL RISK AND OCCASIONAL IMPULSIVITY. SBA REQUIRED OOB AND URINAL ASSIST PROVIDED. NS INFUSES AT 75 ML/HR W/BP STABLE. HE REMAINS NSR AT 60'S-70'S PER TELEMETRY. H&H TRENDING DOWNWARD THIS AM W/MD AWARE BUT NO NEW ORDERS RECIEVED. WILL ENSURE DAY SHIFT IS AWARE TO HAVE MD F/U INSTRUCTED. NO S/S BLEEDING OBSERVED THOUGH PT HASN'T HAD ANY BM'S THIS SHIFT. NO ACUTE CHANGES, VSS/AFEBRILE. PT IS POSSIBLE D/C HOME ON HOSPICE TODAY. WCTM AND REPORT TO DAY RN.
[2019-08-13] MEDS ORDERED: DOCU100 PO (09:29)
--- NOTE | 2019-08-13 11:13 | NUR ---
PT DISCHARGED THE PT AND FAMILY VERBALIZED UNDERSTANDING OF THE DC INSTRUCTIONS, THE PT WAS TRANSFERED VIA WHEELCAHIR ACCOMPANIED BY ESCORT AND THE PTS NEPHEW, HOSPICE WAS NOTIFIED OF THE DC, AND SPOKE WITH THE PTS FAMILY, THE PT APPEARED TO BE BREATHING EASILY ON RA AT THE TIME OF DC
== END 2019-08-13 10:43 | disposition hospice, home (50) ==
LOC: ER 10:07 → MEDS 10:08 → ENPENDDIS 08-13 09:37 → MEDS 08-13 10:43
PROVIDERS: Emergency Medicine; Hospitalist; ADMIT Internal Medicine
DX: T68.XXXA Hypothermia, initial encounter (principal); G30.9 Alzheimer's disease, unspecified; F02.80 Dementia in other diseases classified elsewhere, unspecified severity, without behavioral disturbance, psychotic disturbance, mood disturbance, and anxiety; E43 Unspecified severe protein-calorie malnutrition; I13.0 Hypertensive heart and chronic kidney disease with heart failure and stage 1 through stage 4 chronic kidney disease, or unspecified chronic kidney disease; I50.22 Chronic systolic (congestive) heart failure; J44.9 Chronic obstructive pulmonary disease, unspecified; D50.0 Iron deficiency anemia secondary to blood loss (chronic); N40.0 Benign prostatic hyperplasia without lower urinary tract symptoms; K57.90 Diverticulosis of intestine, part unspecified, without perforation or abscess without bleeding; N18.3 Chronic kidney disease, stage 3 (moderate); Z79.899 Other long term (current) drug therapy; N17.9 Acute kidney failure, unspecified
CPT/HCPCS: 36415; 71046; 73120; 73502; 73560-LT; 80048; 80053; 82550; 82553; 82947; 83605; 83735; 84100; 84145; 85014; 85018; 85025; 86850; 86900; 86901; 94640; 94760; 97162; 97165; 97535; 99285-25; A9270; G0378; J7030; J7040